=== PATIENT | male | born 1955 | race Caucasian/White ===

== ENCOUNTER → 2018-11-06 | Outpatient (CLI) | payer OTHER ==
[~2018-11-06] VITALS: Ht 182.9 cm; Wt 95.3 kg
[~2018-11-06] MED LIST: MOBIC15 MG PO; NABUMETONE 500500 M1 PO
[2018-11-06 08:20] VITALS: BP 132/89
--- NOTE | 2018-11-06 08:35 | NUR ---
Document wound assessment on appropriate Wound Pressure, Monitor intervention!
--- NOTE | 2018-11-06 08:36 | NUR ---
Pain Clinic Assessment: 1. History of Osteoarthritis: Not Applicable History of Rheumatoid Arthritis: Not Applicable 2. Height: 6 ft. 0 in. 182.9 cm. Weight: 210.0 lb. oz. 95.256 kg. Patient's BMI: 28.5 3. Vital Signs: BP: 132/89 Pulse: 84 Resp: 16 Temp: 02 Sat: 97 ECG Mon: 4. Pain Intensity: 6 5. Fall Risk: Dizziness: N Needs help standing or walking: N Fallen in the last 3 months: N Fall risk comments: 6. Patient on Blood Thinner: None 7. History of Hypertension: N 8. Opioid Therapy greater than 6 weeks: N Opiate Contract Signed: 9. Risk Assessment Tool Provided: low 0 10. Functional Assessment Tool: 45/70 11. Recreational Drug Use: Never Drug Type: Tobacco Use: Current Some Day Smoker Tobacco Type: Cigars Amount or Packs/day: How Many Years: Alcohol Use: Yes Frequency: Weekly Quant: 8
--- NOTE | 2018-11-13 07:41 | HPC ---
[facility] [place] [address] PAIN MANAGEMENT CONSULTATION Name: VANDANA BRISCOE Room #: REG DAVID Garcia#: [id number] Admission: 11/06/18 ������������������ Attend Phys: Tonio Salazar DO Discharge: ������������������ Date of : 57 Report #: [id number] THIS REPORT FOR: //name// CC: Dr. Jaime Barclay DATE OF SERVICE: 11/06/2018 REFERRING PHYSICIAN: Dr. Jaime Barclay. CHIEF COMPLAINT: Low back pain, right lower extremity pain and paresthesias. HISTORY OF PRESENT ILLNESS: As you know, the patient is a very pleasant 63-year-old male, who has been referred to our service by his primary care physician, Dr. Jaime Barclay to be evaluated for suspected lumbar radiculopathy. The patient indicates that his pain began approximately 24 hours after a flight that he was on for business. He states the flight lasted for approximately 4-1/2 hours where he was seated in an "uncomfortable chair." He followed the next day lifting large objects such as sofa and chairs assisting a friend move the next day. He then began to experience pain later that evening. He attributes his symptoms to the flight though his pain did not initiate until after his lifting the next day. He has trialed conservative treatment options. He has been given a Medrol Dosepak, meloxicam and hydrocodone. Yet these have not improved the patient's overall pain. He has been doing physical therapy provided by his PCP and under the recommendations of his primary care physician at home. He continues to do these stretching exercises and strengthening techniques. Unfortunately, his symptoms have not begun to improve. He was subsequently referred to our service to discuss treatment options for suspected lumbar radiculopathy. He comes to us today with imaging studies showing some changes within the lumbar spine. The patient indicates pain is continuous and sharp with transient exacerbations of numbness and tingling radiating down the right leg. He describes the pain as burning, shooting, throbbing, sharp, stabbing, numbness and tingling when describing pain. He places current pain score 6/10, daily average of 6/10, worst pain has been is 10/10. The patient states that sitting and standing for any length of time tends to exacerbate symptoms. Standing, repositioning and lying down, tends to improve pain. He has been referred to our service for suspected lumbar radiculopathy to discuss treatment options for the symptoms that he is experiencing in his low back, radiating down his right leg to the foot. PAST MEDICAL HISTORY: 1. History of skin cancer. 2. [place] [address] PAIN MANAGEMENT CONSULTATION Name: VANDANA BRISCOE Room #: REG DAVID Garcia#: [id number] Admission: 11/06/18 ������������������ Attend Phys: Tonio Salazar DO Discharge: ������������������ Date of : 57 Report #: [id number] PAST SURGICAL HISTORY: 1. Mohs surgery. 2. Left shoulder surgery. 3. Right knee surgery x 2. 4. Appendectomy. SOCIAL HISTORY: The patient denies tobacco, IV or illicit drug use. Admits to 2 alcohol beverages per day. He is employed in sales. He is working, not receiving workmen's compensation or he is trying to obtain disability benefits. Not in litigation in regards to pain. He is unaccompanied at today's visit. REVIEW OF SYSTEMS: Positive for night sweats, fatigue and weakness, nocturia, low back pain, right lower extremity pain with paresthesias. All other review of systems negative per 12-point review of systems other than those listed in history of present illness. Pain impact score 45/70 indicating moderate interference of daily activities secondary to pain. ALLERGIES: No known drug allergies. CURRENT MEDICATIONS: Meloxicam 15 mg once a day. IMAGING: MRI lumbar spine obtained 11/02/2018 shows T12-L1, L1-L2, L2-L3 unremarkable. At L3-L4, there is some minimal generalized disk bulge eccentric leftward with mild bilateral ligamentum flavum hypertrophy. No central canal stenosis. Mild facet arthropathy bilaterally. Mild left and no significant right neural foraminal stenosis. L4-L5: Very mild generalized disk bulge. No central canal stenosis. Mild facet arthropathy. Mild right and minimal left neural foraminal narrowing. L5-S1: Minimal disk bulge. No significant central canal neural foraminal stenosis. There is very mild bilateral facet arthropathy, mild left SI joint osteoarthrosis. PHYSICAL EXAMINATION: VITAL SIGNS: Blood pressure 132/89, pulse 84, respiratory rate 16 and unlabored. The patient is 97% on room air. Height 6 feet tall, weight 210 pounds, BMI calculated 28.5. GENERAL: Well-developed, well-nourished, well-hydrated, 63-year-old male, appearing his stated age. He is placing current pain score at 6/10 involving right lower extremity and right buttock area. HEENT: Normocephalic, atraumatic. Pupils equal, round, reactive to light. Extraocular muscles are intact. Sclerae nonicteric without injection. NEUROLOGIC: Cranial nerves 2-12 grossly intact. Speech is fluent. LUNGS: Clear. No wheeze, rhonchi or rales. CARDIOVASCULAR: Regular. No appreciable gallop, no rub. [address] [address] PAIN MANAGEMENT CONSULTATION Name: VANDANA BRISCOE Room #: REG [facility]#: [id number] Admission: 11/06/18 ������������������ Attend Phys: Tonio Salazar DO Discharge: ������������������ Date of : 57 Report #: [id number] ABDOMEN: Soft, nontender, nondistended, normoactive bowel sounds. EXTREMITIES: Show no clubbing, no cyanosis, and no edema. MUSCULOSKELETAL: Lower extremity strength appears symmetrical 5/5. He is intact to light touch from L1 through S2 dermatomes. Seated straight leg raising negative. Supine straight leg raising mildly positive right. DARLENE test is negative. Modified Gaenslen's positive for axial low back pain. Ankle clonus negative. Babinski is negative. Gait appears normal. Stance normal. He is able to toe walk and heel walk without complications. He is also able to tandem walk without complication. ASSESSMENT: 1. Symptomatic lumbar radiculopathy. 2. Lumbosacral spondylosis with radiculopathy. 3. Neural foraminal stenosis of the lumbar spine. PLAN: 1. Based on today's physical exam and history patient has provided, the description the patient uses in regards to pain as well as the location of symptoms, likely source of the patient's pain is lumbar radiculopathy. We discussed with the patient treatment options for lumbar radicular symptoms today. He is already trialled conservative management utilizing Medrol Dosepak, meloxicam and hydrocodone for pain control. Unfortunately, this was ineffective at treating symptoms. He has also continued to utilize physical therapy and stretching exercises at home under physician direction and this has yet to improve overall pain. He has been referred to our service to discuss options for treatment. We discussed that physical therapy stretching exercises and core strengthening can be continued, which should show some improvement in symptoms. This is typically a long-term treatment option, but could improve overall pain. We discussed medication management adding neuropathic pain medications and a consistent nonsteroidal anti-inflammatory at a higher dose. We discussed lumbar epidural injection under fluoroscopic guidance to address lumbar radicular symptoms. We also discussed spinal cord stimulator therapy and surgical options. After reviewing the risks and benefits of all proposed treatment options, the patient chose to make adjustments in his medication management and plan to undergo epidural injection. 2. The patient was advised that third [employer] party payer restrictions require the authorization be obtained before the patient could undergo a lumbar epidural injection. We will begin the authorization process immediately and contact the patient once this has been completed. We will have the patient then returned at that visit to undergo the first in a series of lumbar epidural injections. 3. The patient will discontinue meloxicam, in place will be using nabumetone 500 mg dose 1 tab p.o. t.i.d. I have given the patient #90 tablets, [address] [address] PAIN MANAGEMENT CONSULTATION Name: RACHNAVANDANA Room #: REG CLSusy Garcia#: [id number] Admission: 11/06/18 ������������������ Attend Phys: Tonio Salazar DO Discharge: ������������������ Date of : 57 Report #: [id number] The patient was advised to watch for dyspepsia, worsening of blood pressure, lower extremity edema with the use of the medication. If he notes any side effects, discontinue immediately, call for further instructions. 4. We will see the patient back in followup visit once we have achieved authorization for the patient to undergo the first in a series of lumbar epidural injections. 5. We wish to thank Dr. Barclay for the referral of the patient to our clinic. We will keep you apprised of his response to treatment as we address his lumbar radicular symptoms. Again, we wish to thank you for the opportunity to see this patient in consultation. ��������������������������������������������� <ELECTRONICALLY SIGNED> ���������������������������������������� By: Tonoi Salazar DO ��������������������������������������������� 11/13/18 0741 [id number] Tonio Salazar DO /nt
== END ==
LOC: PAIN 06:45
DX: M47.27 Other spondylosis with radiculopathy, lumbosacral region (principal); M48.061 Spinal stenosis, lumbar region without neurogenic claudication; Z79.899 Other long term (current) drug therapy

== ENCOUNTER → 2018-11-14 | Outpatient (CLI) | payer OTHER ==
[~2018-11-14] VITALS: Ht 182.9 cm; Wt 98.4 kg
[2018-11-14 08:59] VITALS: BP 126/80
--- NOTE | 2018-11-14 09:01 | NUR ---
Pain Clinic Assessment: 1. History of Osteoarthritis: Not Applicable History of Rheumatoid Arthritis: Not Applicable 2. Height: 6 ft. 0 in. 182.9 cm. Weight: 217.0 lb. oz. 98.431 kg. Patient's BMI: 29.4 3. Vital Signs: BP: 126/80 Pulse: 72 Resp: 18 Temp: 02 Sat: 95 ECG Mon: 4. Pain Intensity: 7 5. Fall Risk: Dizziness: N Needs help standing or walking: N Fallen in the last 3 months: N Fall risk comments: 6. Patient on Blood Thinner: None 7. History of Hypertension: N 8. Opioid Therapy greater than 6 weeks: N Opiate Contract Signed: 9. Risk Assessment Tool Provided: low 0 10. Functional Assessment Tool: 45/ 11. Recreational Drug Use: Never Drug Type: Tobacco Use: Current Some Day Smoker Tobacco Type: Amount or Packs/day: How Many Years: Alcohol Use: Yes Frequency: Quant:
--- NOTE | 2018-11-21 09:24 | HPC ---
[facility] [place] [address] [address] [place] [address] PAIN MANAGEMENT CONSULTATION Name: VANDANA BRISCOE Room #: REG CLSusy Radha#: [id number] Admission: 11/14/18 ������������������ Attend Phys: Tonio Salazar DO Discharge: ������������������ Date of : 57 Report #: [id number] THIS REPORT FOR: //name// CC: Tonio Barclay III, MD DATE OF SERVICE: 11/14/2018 REFERRING PHYSICIAN: Jaime Barclay III, M.D. CHIEF COMPLAINT: Low back pain and right lower extremity pain with paresthesias. HISTORY OF PRESENT ILLNESS: As you know, the patient is a very pleasant 63-year-old male who was seen in consultation per the request of Dr. Jaime Barclay on 11/06/2018. He was diagnosed with symptomatic lumbar radiculopathy, neural foraminal stenosis of the lumbar spine, leading to chronic intractable pain. He and I discussed treatment options for his lumbar radicular symptoms and he chose to undergo a lumbar epidural injection under fluoroscopic guidance. He returns today in followup visit to undergo this procedure as we have gained prior authorization. He denies any changes in medical history since our visit of 11/06/2018. He is prepared to undergo the first in a series of lumbar epidural injections. ALLERGIES: No known drug allergies. CURRENT MEDICATIONS: Nabumetone 500 mg t.i.d. SOCIAL HISTORY: The patient denies tobacco, IV or illicit drug use. Admits to 2 alcohol beverages per day. 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 IMAGING DATA: No new imaging available. PHYSICAL EXAMINATION: VITAL SIGNS: Blood pressure 126/80, pulse 72 and respiratory rate 18 and unlabored. The patient is 95% on room air, height 6 feet tall, weight 217 pounds and BMI calculated 29.4. GENERAL: Well-developed, well-nourished and well-hydrated 63-year-old male appearing stated age, placing current pain score 7/10. HEENT: Normocephalic and atraumatic. Pupils equal, round and reactive to light. Extraocular muscles are intact. Speech fluent. EXTREMITIES: Show no clubbing, no cyanosis and no edema. MUSCULOSKELETAL: Lower extremity strength is symmetrical 5/5. He is intact to light touch from L1 through S2 dermatomes. Straight leg raising is negative in [facility] [address] [place] [address] PAIN MANAGEMENT CONSULTATION Name: VANDANA BRISCOE Room #: REG DAVID Garcia#: [id number] Admission: 11/14/18 ������������������ Attend Phys: Tonio Salazar DO Discharge: ������������������ Date of : 57 Report #: [id number] the seated position. in the supine position on the right. Richi's test negative. Gait mildly antalgic favoring right lower extremity today. ASSESSMENT: 1. Symptomatic lumbar radiculopathy. 2. Lumbosacral spondylosis with radiculopathy. 3. Neural foraminal stenosis of the lumbar spine. 4. Intractable pain. PLAN: 1. The patient returns today in followup visit having received preauthorization to undergo a lumbar epidural injection under fluoroscopic guidance. The patient and I had a discussion today about the risks and the benefits of the procedure. The following was discussed with the patient. We discussed the risks of the procedure, which would include but are not necessarily limited to bleeding, bruising, infection, worsening pain, no relief of pain, also risk of temporary or permanent muscle weakness, temporary or permanent nerve damage, possible paralysis, post-dural puncture headache and . The patient states understood and wished to proceed. 2. No medication changes made at today's visit. The patient will continue current medical therapy as previously prescribed. 3. We will see the patient back in followup visit on an as needed basis for the possible next in the series of lumbar epidural injections. PROCEDURE NOTE DESCRIPTION OF PROCEDURE: L5-S1 right paramedian epidural steroid injection under fluoroscopic guidance. This is the first procedure of the first series that the patient is undergoing. After obtaining written consent, the patient was taken back to the fluoroscopy suite, placed in a prone position with pillow under the abdomen to decrease lumbar lordosis. The skin overlying the lumbosacral area was then prepped and draped in aseptic fashion. The L5-S1 vertebral interspace was then identified by AP fluoroscopy. The skin and subcutaneous tissue overlying the target site of injection was anesthetized with 3 mL 1% lidocaine. A 20-gauge 3-1/2 inch Tuohy needle was then advanced under fluoroscopic guidance towards the epidural space using a right paramedian approach. The epidural space was identified using loss of resistance to air technique. After negative aspiration for heme or cerebrospinal fluid, a total of 0.05 mL of Omnipaque was injected. A lumbar epidurogram was confirmed using both AP and lateral fluoroscopy. After negative aspiration for heme or cerebrospinal fluid, 5 mL of a solution containing 2 mL 40 mg per mL, 80 mg total triamcinolone and [address] mL [address] [address] PAIN MANAGEMENT CONSULTATION Name: VANDANA BRISCOE Room #: REG DAVID Bishop#: [id number] Admission: 11/14/18 ������������������ Attend Phys: Tonio Salazar DO Discharge: ������������������ Date of : 57 Report #: [id number] lidocaine 1% was injected in increments. Contrast spread was noted posterior epidural space. The needle was then retracted approximately half way and needle tract flushed with 1 mL of 1% lidocaine. Needle was then removed. There were no apparent sensory or motor deficits in the lower extremity following the procedure. A sterile bandage was placed over the injection site. The heart rate, pulse, oximetry and blood pressure were continuously monitored after the procedure. There were no apparent complications. The patient tolerated the procedure well and was carefully escorted to the recovery room in stable condition. There were no apparent complications. After meeting discharge criteria, the patient was then discharged home. ��������������������������������������������� <ELECTRONICALLY SIGNED> ���������������������������������������� By: Tonio Salazar DO ��������������������������������������������� 11/21/18 0924 [id number] Tonio Salazar DO /nt
== END | disposition home or self-care (01) ==
LOC: PAIN 06:45
DX: M47.27 Other spondylosis with radiculopathy, lumbosacral region (principal); M48.061 Spinal stenosis, lumbar region without neurogenic claudication; G89.29 Other chronic pain; F17.210 Nicotine dependence, cigarettes, uncomplicated; Z79.899 Other long term (current) drug therapy

== ENCOUNTER → 2021-01-19 | Outpatient (CLI) | payer OTHER ==
[~2021-01-19] VITALS: Ht 182.9 cm; Wt 90.9 kg
[~2021-01-19] MED LIST changes: +NEURONTIN300 MG PO
--- NOTE | ~2021-01-19 | HPC ---
[facility] [place] [address] PAIN MANAGEMENT CONSULTATION Name: VANDANA BRISCOE Room #: REG DAVID Radha#: [id number] Admission: 01/19/21 Attend Phys: Tonio Salazar DO Discharge: Date of : 57 Report #: [id number] THIS REPORT FOR: cc: Jaime Barclay II, MD, II,Jaime Salazar,Tonio Montejo DO ~ cc: Jaime Barclay DATE OF SERVICE: 01/19/2021 CHIEF COMPLAINT: Low back pain, right lower extremity pain with paresthesias. HISTORY OF PRESENT ILLNESS: As you know, the patient is a very pleasant 65-year-old male who has returned today in followup visit per the request of his primary care physician, Dr. Jaime Barclay to discuss ongoing recurrent low back pain, right lower extremity pain with paresthesias. The patient has been diagnosed with symptomatic lumbar radiculopathy, neural foraminal stenosis of lumbar spine leading to chronic intractable pain. The patient underwent an epidural injection under fluoroscopic guidance on 11/14/2018 with excellent benefit, near-complete resolution of symptoms, lasting for almost 2 years. Unfortunately, his symptoms have begun to return. He cited no injury or trauma. He is able to localize pain in the distribution of lumbar radicular symptoms similar to his previous evaluation. He returns today to discuss options for treatment to address more of paresthesias than stabbing, electrical like pain, consistent with his previous evaluation. ALLERGIES: No known drug allergies. CURRENT MEDICATIONS: None. SOCIAL HISTORY: The patient denies tobacco, IV or illicit drug use. Admits to approximately 2 alcohol beverages per today. He is employed in sales working, not receiving workmen's compensation, unaccompanied today. IMAGING: No new imaging is available. PHYSICAL EXAMINATION: VITAL SIGNS: Blood pressure 115/72, pulse 68, respiratory rate 16 and unlabored. The patient is 98% on room air, height 6 feet tall, weight 200.4 pounds, BMI calculated 27.2. GENERAL: A well-developed, well-nourished, well-hydrated 65-year-old male appearing stated age, pain is rated today 1/10. HEENT: Normocephalic, atraumatic. Pupils equal, round and responsive to light. He is wearing a mask in compliance with COVID-19 regulations. LUNGS: Appear clear. No wheeze, rhonchi or rales. CARDIOVASCULAR: Regular. No appreciable gallop or rub. EXTREMITIES: Show no clubbing, no cyanosis and no edema. [facility] [address] [place] [address] PAIN MANAGEMENT CONSULTATION Name: VANDANA BRISCOE Room #: REG [facility]#: [id number] Admission: 01/19/21 Attend Phys: Tonio Salazar DO Discharge: Date of : 57 Report #: [id number] MUSCULOSKELETAL: Lower extremity strength is equal and symmetrical 5/5. Muscle bulk and tone is equal and symmetrical in lower extremities when comparing left lower extremity to right. Seated straight leg raising is negative. Supine straight leg raising causes mild intensification of pain with radiation to the right lateral calf at about 65 degree angle. Fabere's test is negative. Modified Gaenslen's positive for axial low back pain. No radiation of symptoms. Ankle clonus negative. Babinski is negative. Gait is mildly antalgic, favoring right lower extremity. ASSESSMENT: 1. Symptomatic lumbar radiculopathy. 2. Lumbosacral spondylosis with radiculopathy. 3. Neural foraminal stenosis of lumbar spine. 4. Recurrent lumbar radicular pain. PLAN: 1. The patient returns today in followup visit where he is describing pain that radiates from the low back down the right lower extremity consistent with lumbar radiculopathy. The patient believes that he may have been experiencing a Monroy's neuroma in the right foot, though the symptoms that he is describing today in the distribution of pain does not fit with a Monroy's neuroma. It does not preclude the fact that he may have such an issue. If he does continue to experience ongoing foot pain and wants to discuss further, I would recommend a Podiatry referral. As for the symptoms he is experiencing today, it is fairly consistent with lumbar radiculopathy. In fact distribution of symptoms is almost exactly the same way it was in 10/2018, though to a lesser intensity, similar distribution. We discussed this with the patient today. After this discussion of the source of symptoms, we then discussed treatment options following was discussed with the patient today. We discussed physical therapy, stretching exercises and core strengthening as a treatment approach. We discussed medication management, adding neuropathic pain medications such as amitriptyline, nortriptyline, Cymbalta, Lyrica or gabapentin to address paresthesias and numbness and tingling. We discussed lumbar epidural injection under fluoroscopic guidance as a treatment course. We also discussed spinal cord stimulator therapy and ultimately surgical decompression. After reviewing the risks and benefits of all proposed treatment options, the patient chose to begin with medication management. 2. The patient will be started on gabapentin 300 mg dose. He will start 1 tab p.o. at bedtime for 3 nights. If no improvement in symptoms, no side effects, then 2 tabs p.o. at bedtime for 3 nights. If again no side effects and no improvement in symptoms, escalate to 900 mg at night. He will continue this for 3 nights. If he continues to experience pain without side effects of the medication, then begin increasing in the daytime hours every three days to reach 900 mg twice a day. The patient was given #180 tablets to begin the titration. He is advised to watch for side effects of sleepiness, disorientation, [facility] [address] [place] [address] PAIN MANAGEMENT CONSULTATION Name: RACHNAVANDANA Room #: REG DAVID Garcia#: [id number] Admission: 01/19/21 Attend Phys: Tonio Salazar DO Discharge: Date of : 57 Report #: [id number] confusion, mental slowing. If he notes these side effects, decrease to the dose prior and contact our clinic for further instructions. A prescription was sent via e-scribe to local pharmacy. 3. The patient wishes to trial medication initially. If he finds this beneficial, we will continue the therapy. If he does not notice improvement in symptoms, I would recommend a lumbar epidural injection under fluoroscopic guidance. The patient is agreeable with this plan. We will await the efficacy of the titration of the gabapentin before moving forward with the epidural injection. If the patient does choose to undergo the epidural injection, will need to obtain authorization. He will contact our clinic to advise us whether or not he wishes to move forward with that injection. We wish to thank, Dr. Jaime Barclay, for the referral of this patient back to our clinic. We will keep you apprised of response to treatment as we address his lumbar radicular symptoms. Again, we wish to thank you for the opportunity to see the patient in consultation. By: [id number] Tonio Salazar DO /nt
[2021-01-19 13:19] VITALS: BP 115/72
--- NOTE | 2021-01-19 13:50 | NUR ---
Pain Clinic Assessment: 1. History of Osteoarthritis: Not Applicable History of Rheumatoid Arthritis: Not Applicable 2. Height: 6 ft. 0 in. 182.9 cm. Weight: 200.4 lb. oz. 90.901 kg. Patient's BMI: 27.2 3. Vital Signs: BP: 115/72 Pulse: 68 Resp: 16 Temp: 02 Sat: 98 ECG Mon: 4. Pain Intensity: 1 5. Fall Risk: Dizziness: N Needs help standing or walking: N Fallen in the last 3 months: N Fall risk comments: 6. Patient on Blood Thinner: None 7. History of Hypertension: N 8. Opioid Therapy greater than 6 weeks: N Opiate Contract Signed: 9. Risk Assessment Tool Provided: low 0 10. Functional Assessment Tool: 45/70 11. Recreational Drug Use: Never Drug Type: Tobacco Use: Former Smoker Tobacco Type: Amount or Packs/day: How Many Years: Alcohol Use: Yes Frequency: Daily Quant: 1
== END ==
LOC: PAIN 08:56
PROVIDERS: ATTEND Anesthesiology Pain Medicine
DX: M47.27 Other spondylosis with radiculopathy, lumbosacral region (principal); M48.07 Spinal stenosis, lumbosacral region; Z79.891 Long term (current) use of opiate analgesic; Z79.899 Other long term (current) drug therapy